=== PATIENT | female | born 1995 | race Two or more races ===

== ENCOUNTER 2017-11-27 12:08 | Emergency (ER) | payer MEDICAID ==
[2017-11-27 12:16] VITALS: RESP 16; TEMP 98.2
--- NOTE | 2017-11-27 13:39 | EDPHY ---
General Narrative: CHIEF COMPLAINT: Sore throat, right ear pain HISTORY OF PRESENT ILLNESS: Patient complains of 2 days history of sore throat one-day history of right ear pain. Gradual onset. Constant duration. Oakh-dl-tpdyngos symptoms that have worsened to severe. Difficulty drinking because the pain. No difficulty opening or closing her mouth. She has taken ibuprofen with no improvement. She has had no cough. Mild runny nose. No chest pain. No shortness of breath. No abdominal complaints. No urinary complaints. No evaluation for this yet. No other associated complaints or modifying factors. REVIEW OF SYSTEMS: Ten systems reviewed and are negative unless otherwise noted in the HPI PCP: [facility] SPECIALISTS: None PAST MEDICAL HISTORY: None PAST SURGICAL HISTORY: None SOCIAL HISTORY: Nonsmoker. No alcohol or drug use. FAMILY HISTORY: Noncontributory EXAMINATION General Appearance: Alert, no distress Head: normocephalic, atraumatic Eyes: Pupils equal and round, no conjunctival pallor or injection ENT, Mouth: Mucous membranes moist. Uvula midline. There is posterior erythema and tonsillar erythema and exudate. The tonsils are symmetric and without evidence of peritonsillar abscess. The airway is widely patent. No trismus. No hoarseness Neck: Normal inspection, supple, non-tender Respiratory: Lungs are clear to auscultation. No wheezing, rhonchi or crackles Cardiovascular: Regular rate and rhythm. No murmur Gastrointestinal: Abdomen is soft and nontender Back: non-tender, no bony abnormalities Neurological: A&O, nonfocal, normal gait Skin: Warm and dry, no rash. No petechiae or purpura Extremities: Nontender, no pedal edema Psychiatric: Mood and affect normal DIFFERENTIAL DIAGNOSES: Including but not limited to viral pharyngitis, strep pharyngitis, bacterial pharyngitis, serous otitis media, otitis media MDM: 1:18 p.m. Acute pharyngitis and exudate of tonsillitis without evidence of peritonsillar abscess. The airway is widely patent. Rapid strep test is negative I suspect this is a false negative. She has no trismus. She is in no acute distress vital signs stable. She has right ear pain without any definite otitis media or any perforation on exam. We will treat her presumptively for strep pharyngitis. She will be contacted tomorrow if her strep PCR is positive. We discussed symptomatic medications in addition to the prescription medications. We discussed ED precautions and follow up with primary care physician. She is comfortable this plan and discharged home stable condition. SUPERVISION: This patient was independently evaluated without direct involvement of or examination by the attending physician. - History Smoking Status: Never smoked - Objective Vital Signs: Initial Vital Signs Temperature (C) 98.2 F 11/27/17 12:14 Heart Rate 83 11/27/17 12:14 Respiratory Rate 16 11/27/17 12:14 Blood Pressure 119/71 11/27/17 12:14 O2 Sat (%) 97 11/27/17 12:14 O2 Delivery Mode Room Air Allergies/Adverse Reactions: No Known Allergies Allergy (Unverified 06/08/16 21:26) Home Medications: Medication Instructions Recorded Acetaminophen/Codeine 300/30Mg 1 each PO Q6 PRN #5 tab 11/27/17 [Tylenol #3 (*)] Dexamethasone [Decadron 4 MG (*)] 8 mg PO DAILY #2 tab 11/27/17 Penicillin V Potassium [Pen Vk 500 mg PO BID 10 Days tab 11/27/17 500mg (*)] Laboratory Results: 11/27/17 11/27/17 Unknown 12:30 Group A Strep Screen NEGATIVE (NEGATIVE) Group A Strep DNA Pending Departure - Departure Disposition: Home, Routine, Self-Care Clinical Impression: Otalgia of right ear Pharyngitis Qualifiers: Pharyngitis/tonsillitis etiology: unspecified etiology Qualified Code(s): J02.9 - Acute pharyngitis, unspecified Acute tonsillitis Qualifiers: Pharyngitis/tonsillitis etiology: unspecified etiology Qualified Code(s): J03.90 - Acute tonsillitis, unspecified Condition: Good Instructions: Pharyngitis (ED), Tonsillitis (ED), Earache (ED) Additional Instructions: 1. Medications as prescribed to completion 2. ED precautions as discussed 3. Ibuprofen [id number] as discussed as needed 4. Increase fluid intake 5. [facility] Referrals: [facility] [Other] - As per Instructions Prescriptions: Acetaminophen/Codeine 300/30Mg [Tylenol #3 (*)] 1 each PO Q6 PRN #5 tab PRN Reason: Pain, Mild Dexamethasone [Decadron 4 MG (*)] 8 mg PO DAILY #2 tab Penicillin V Potassium [Pen Vk 500mg (*)] 500 mg PO BID 10 Days tab
[2017-11-27 13:53] VITALS: BP 137/85; PULSE 80; O2SAT 96
== END 2017-11-27 13:53 | disposition home or self-care (01) ==
DX: J03.90 Acute tonsillitis, unspecified (principal); H92.01 Otalgia, right ear